=== PATIENT | female | born 2000 | race African-American/Black ===

== ENCOUNTER 2022-07-11 10:18 | Outpatient (CLI) | payer OTHER | END 2022-07-11 10:19 | disposition home or self-care (01) | LOC: CSHLAB 10:18 | PROVIDERS: ATTEND Obstetrics & Gynecology | DX: Z20.822 Contact with and (suspected) exposure to COVID-19 (principal) | CPT/HCPCS: 87811 ==

== ENCOUNTER 2022-07-15 05:21 | Inpatient (IN) | payer OTHER ==
[2022-07-15] MEDS ORDERED: NS w/ Oxytocin 30 units 500 ML IV SCH ×2 (05:44)
[2022-07-15] MEDS ORDERED: Methylergonovine 0.2 MG/ML VIAL IM PRN (05:44)
[2022-07-15] MEDS ORDERED: Diphenoxylate HCl/Atropine Tablet PO PRN ×2 (05:44)
[2022-07-15] MEDS ORDERED: Lidocaine 1% (PF) 30 ML VIAL SC PRN (05:44)
[2022-07-15] MEDS ORDERED: Misoprostol 200 MCG TAB PR PRN (05:44)
[2022-07-15] MEDS ORDERED: Acetaminophen 500 MG TAB PO PRN (05:44)
[2022-07-15] MEDS ORDERED: Carboprost 250 MCG/ML AMP IM PRN (05:44)
[2022-07-15] MEDS ORDERED: Promethazine HCl 25 MG/ML VIAL IM PRN ×2 (05:44→10:05)
[2022-07-15] MEDS ORDERED: Lactated Ringer's 1,000 ML IV SCH (05:44)
[2022-07-15] MEDS ORDERED: HYDROcodone/Acetaminophen 5/325 mg Tablet PO PRN (05:44)
[2022-07-15] MEDS ORDERED: hydrALAZINE 20 MG/ML VIAL SLOW IVP PRN ×2 (05:44→11:21)
[2022-07-15] MEDS ORDERED: Ibuprofen 800 MG TAB PO PRN (05:44)
[2022-07-15] MEDS ORDERED: Ondansetron PF 4 MG/2 ML Vial IVP PRN ×2 (05:44→10:05)
[2022-07-15 06:12] VITALS: BMI 37.0
[2022-07-15 07:18] LABS: Hemoglobin 9.8 g/dL (12.0-15.5); Mean Corpuscular HGB CONC 32.2 g/dL (32.0-36.0); Mean Corpuscular Hemoglobin 24.7 pg (27.0-33.0); Mean Corpuscular Volume 76.6 fl (81.6-98.3); Mean Platelet Volume 11.7 fl (7.4-10.4); Platelet Count 378 10x3/uL (150-450); RBC Distribution Width 15.1 % (11.5-14.5); Red Blood Cell (RBC) Count 3.97 10x6/uL (3.90-5.03); White Blood Cell (WBC) Count 12.2 10x3/uL (3.5-10.5)
[2022-07-15 07:51] LABS: HBSAg Index 0.21 S/CO (0-0.99); Hep B Surf Ag Non-Reactive S/CO (NonReactive)
[2022-07-15 09:17] LABS: Syphilis Antibody Nonreactive (Nonreactive); Syphilis Antibody Index 0.04 S/CO (<1.00 Non-Reactive)
[2022-07-15] MEDS ORDERED: Fentanyl 2 mcg/Bup 0.1% Cadd 100 ML ONE (09:39)
[2022-07-15 09:59] LABS: ALT (SGPT) 6 U/L (8-55); AST (SGOT) 11 U/L (5-34); Albumin 3.3 g/dL (3.5-5.0); Alkaline Phosphatase 152 U/L (40-110); Anion Gap 16 mmol/L (10-20); BUN (Urea Nitrogen) 6 mg/dL (7.0-18.7); Bilirubin, Total 0.5 mg/dL (0.2-1.2); Calc. Creatinine Clearance 237 mL/min (70-130); Calcium 9.5 mg/dL (7.8-10.44); Carbon Dioxide 19 mmol/L (22-29); Chloride 107 mmol/L (98-107); Estimated GFR 132; Globulin 3.4 g/dL (2.4-3.5); Glucose 99 mg/dL (70-105); Potassium 3.8 mmol/L (3.5-5.1); Protein, Total 6.7 g/dL (6.0-8.3); Sodium 138 mmol/L (136-145)
[2022-07-15] MEDS ORDERED: ePHEDrine Sulfate 50 MG/10 ML VIAL SLOW IVP PRN (10:05)
[2022-07-15] MEDS ORDERED: Lactated Ringer's 500 ML IV PRN (10:05)
[2022-07-15] MEDS ORDERED: diphenhydrAMINE 50 MG/ML VIAL IVP PRN (10:05)
[2022-07-15] MEDS ORDERED: Naloxone HCl 0.4 mg/ml Vial IVP PRN ×2 (10:05)
[2022-07-15] MEDS ORDERED: Moisturizing Cream (Eucerin) 113 GM JAR TOP PRN (10:05)
[2022-07-15] MEDS ORDERED: Acetaminophen 325 MG TAB PO PRN (10:05)
[2022-07-15] MEDS ORDERED: Communication Order-Pharmacy FS SCH (10:15)
[2022-07-15] MEDS ORDERED: Fentanyl 2 mcg/Bupivacaine 0.1% Cassette 100 ML EPIDURAL SCH (10:15)
[2022-07-15 11:19] LABS: Creatinine, Urine 175.37 mg/dL (47-110)
[2022-07-15] MEDS ORDERED: Boostrix 0.5 ML (Tdap) VIAL (>/=7 yrs of age) IM ONE (11:21)
[2022-07-15] MEDS ORDERED: traMADol HCl 50 MG TAB PO PRN (11:21)
[2022-07-15] MEDS ORDERED: Bisacodyl 10 MG SUPP PR PRN (11:21)
[2022-07-15] MEDS ORDERED: Milk Of Magnesia 30 ML UDCUP PO PRN (11:21)
[2022-07-15] MEDS ORDERED: Preparation H Ointment 28 GM TUBE PR PRN (11:21)
[2022-07-15] MEDS ORDERED: Benzocaine-Menthol 82.5 ML CAN TOP PRN (11:21)
[2022-07-15] MEDS: Ibuprofen 800 MG TAB PO SCH ×2 (13:07→21:27)
[2022-07-15] MEDS ORDERED: NIFEdipine XL 30 MG TAB PO SCH (13:45)
[2022-07-15] MEDS: Ferrous Sulfate 325 MG TAB PO SCH (17:37)
[2022-07-15] MEDS ORDERED: Bupivacaine 0.25% HCL 30 ML VIAL ONE (18:52)
[2022-07-15] MEDS: Docusate 100 MG CAP PO SCH (21:27)
[2022-07-16] MEDS: Ibuprofen 800 MG TAB PO SCH ×3 (05:22→21:33)
[2022-07-16] MEDS: NIFEdipine XL 30 MG TAB PO SCH (08:46)
[2022-07-16] MEDS: Ferrous Sulfate 325 MG TAB PO SCH ×2 (08:46→16:55)
[2022-07-16] MEDS: Docusate 100 MG CAP PO SCH ×2 (08:46→21:33)
[2022-07-16] MEDS: Prenatal Vitamin 1 TAB PO SCH (08:46)
[2022-07-17] MEDS: Ibuprofen 800 MG TAB PO SCH (05:10)
[2022-07-17 08:16] VITALS: BP 125/78; TEMP 98.4
[2022-07-17] MEDS: Prenatal Vitamin 1 TAB PO SCH (08:38)
[2022-07-17] MEDS: NIFEdipine XL 30 MG TAB PO SCH (08:39)
[2022-07-17] MEDS: Docusate 100 MG CAP PO SCH (08:39)
[2022-07-17] MEDS: Ferrous Sulfate 325 MG TAB PO SCH (08:39)
[2022-07-17] MEDS ORDERED: Measles/Mumps/Rubella 10 MCG/0.5 ML VIAL SC ONE (10:30)
== END 2022-07-17 12:45 | disposition home or self-care (01) | DRG 807 ==
LOC: CSHLD 05:21 → CSHPP 15:05
PROVIDERS: ADMIT Obstetrics & Gynecology; ATTEND Obstetrics & Gynecology
PROC: 10E0XZZ Delivery of Products of Conception, External Approach (ICD-10-PCS; principal; 2022-07-15)
PROC: 0UQMXZZ Repair Vulva, External Approach (ICD-10-PCS; 2022-07-15)
DX: O70.0 First degree perineal laceration during delivery (principal); Z37.0 Single live birth; Z3A.39 39 weeks gestation of pregnancy
CPT/HCPCS: 51702; 80053; 82570; 84156; 85027; 86780; 86850; 86900; 86901; 87340; 90707; J0360; J0595; J2590; J7120; S0020